=== PATIENT | male | born 1940 | race Native Hawaiian/Other Pacific Islander ===

== ENCOUNTER 2019-12-05 15:11 | Outpatient (CLI) | payer OTHER, BC ==
[2019-12-05 15:51] LABS: POTASSIUM 3.6 mmol/L (3.6-5.2)
[2019-12-05 17:28] LABS: PLATELET COUNT 162 K/uL (142-355)
== END 2019-12-05 19:39 | disposition home or self-care (01) ==
LOC: LABW 15:11
PROVIDERS: Internal Medicine
DX: N18.2 Chronic kidney disease, stage 2 (mild) (principal); M10.09 Idiopathic gout, multiple sites; E53.8 Deficiency of other specified B group vitamins
CPT/HCPCS: 36415; 80053; 81000; 82043; 82306; 82570; 82607; 82746; 83970; 84155; 84550; 85027

== ENCOUNTER 2020-06-10 11:52 | Outpatient (CLI) | payer OTHER, BC ==
[2020-06-10 12:15] LABS: PLATELET COUNT 159 K/uL (142-355)
[2020-06-10 12:33] LABS: POTASSIUM 4.3 mmol/L (3.6-5.2)
== END 2020-06-10 19:23 | disposition home or self-care (01) ==
LOC: LABW 11:52
PROVIDERS: ATTEND Internal Medicine
DX: N18.2 Chronic kidney disease, stage 2 (mild) (principal); M10.09 Idiopathic gout, multiple sites; E53.8 Deficiency of other specified B group vitamins; Z79.899 Other long term (current) drug therapy
CPT/HCPCS: 36415; 80053; 81000; 82043; 82306; 82570; 82607; 82746; 84155; 84443; 84550; 85027